=== PATIENT | male | born 1995 | race African-American/Black ===

== ENCOUNTER 2019-03-04 19:47 | Emergency (ER) | payer MEDICAID ==
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
[2019-03-04] MEDS ORDERED: Cephalexin 500 MG Cap PO ONE (21:03)
[2019-03-04] MEDS ORDERED: Acetaminophen/HYDROcodone 325-10 MG Tab PO ONE (21:06)
== END 2019-03-04 21:16 | disposition home or self-care (01) ==
LOC: DL.ED 19:47
DX: S62.667A Nondisplaced fracture of distal phalanx of left little finger, initial encounter for closed fracture (principal); S02.40CA Maxillary fracture, right side, initial encounter for closed fracture; S00.531A Contusion of lip, initial encounter; S80.212A Abrasion, left knee, initial encounter; F17.210 Nicotine dependence, cigarettes, uncomplicated; Y04.2XXA Assault by strike against or bumped into by another person, initial encounter
CPT/HCPCS: 70450; 70486; 73120; 99284; A9270